=== PATIENT | male | born 2000 | race Caucasian/White ===

== ENCOUNTER 2023-06-08 03:56 | Emergency (ER) | payer MEDICAID ==
[~2023-06-08] VITALS: Ht 188 cm; Wt 145.0 kg
[~2023-06-08 03:56] MED LIST: BENADRYL25 M1 OR; CIPRODEX1 ML OT; FLORASTOR250 M1 PO; OMNICEF300 MG PO; PRELONE 15MG/5ML5 ML OR
[2023-06-08] MEDS ORDERED: VOLTAREN - GENE75 MG PO (05:17)
[2023-06-08 06:15] VITALS: BP 133/89
== END 2023-06-08 06:15 | disposition home or self-care (01) ==
LOC: ED 03:56
DX: S90.211A Contusion of right great toe with damage to nail, initial encounter (principal); W20.8XXA Other cause of strike by thrown, projected or falling object, initial encounter; Y92.89 Other specified places as the place of occurrence of the external cause; Y99.0 Civilian activity done for income or pay